=== PATIENT | female | born 1975 | race Caucasian/White ===

== ENCOUNTER → 2016-09-25 | Outpatient (CLI) | payer OTHER ==
[2016-09-26 08:08] LABS: RHEUMATOID ARTHRITIS FACTOR 16.2 IU/mL (0.0-13.9)
== END | disposition home or self-care (01) ==
LOC: ORTHO 02:30 → LAB 02:30 → ORTHO 17:51
PROVIDERS: Orthopaedic Surgery
DX: M54.2 Cervicalgia (principal)